=== PATIENT | male | born 1945 | race Caucasian/White ===

== ENCOUNTER 2020-03-12 12:27 | Inpatient (IN) | payer OTHER, BC, MEDICARE ==
[2020-03-12] VITALS (29 sets, daily range): BP systolic 115–190; BP diastolic 78–144
[~2020-03-12] VITALS: Ht 182.9 cm; Wt 77.1 kg
--- NOTE | 2020-03-12 11:50 | NUR ---
Arrival Patient arrived on unit via stretcher to ICU 2. Report received from EMS. Assumed care of patient. Pt placed on bedside monitor, Vital signs within normal limits. Admission and assessment completed as charted. Educated pt on use of call light, pt verbalized understanding. Educated pt on airborne, droplet and contact precautions related to being COVID 19 positive, pt verbalized understanding. CAll light within reach. Will continue to monitor.
[2020-03-12] MEDS ORDERED: VALIUM PO STA (12:51)
[2020-03-12] MEDS ORDERED: VALIUM ONE (12:52)
[2020-03-12] MEDS ORDERED: VANCOMYCIN HCL 1 GM ONE (12:55)
[2020-03-12] MEDS ORDERED: NS 250ML 250 ML IV ONE ×2 (12:55→12:59)
[2020-03-12] MEDS ORDERED: KETAMINE HCL-Non-Preferred ONE (13:01)
[2020-03-12] MEDS ORDERED: VERSED ONE (13:01)
[2020-03-12] MEDS ORDERED: DIPRIVAN IV ONE (13:02)
[2020-03-12] MEDS ORDERED: SUBLIMAZE ONE (13:02)
[2020-03-12] MEDS ORDERED: LIDOCAINE 1% VIAL ONE (13:05)
[2020-03-12] MEDS ORDERED: SODIUM CHLORIDE IRR BOTTLE IR ONE (13:05)
[2020-03-12] MEDS ORDERED: GENTAMICIN 80 MG/NS 100 ML PB 100 ML IV ONE (13:05)
--- NOTE | 2020-03-12 13:18 | HPH ---
ADMIT DATE: 03/12/2020 CHIEF COMPLAINT: Recurrent syncope, documented sinus bradycardia, rate in the mid 30s, required atropine, transferred from [facility] where he waited for about 12 hours. HISTORY OF PRESENT ILLNESS: The patient is a 74-year-old white male who goes to the [facility], had a syncopal episode about a month ago. After he went to the [facility], his Lyrica was changed to gabapentin. He has no underlying history of any hypertension, diabetes, or known heart disease and he yesterday on 03/11/2020 in the afternoon while watching TV blacked out, had 3 such episodes, went to the [facility] and his heart rate was in the mid 30s, he required atropine 1 mg IV and subsequently 0.5 mg IV and his COVID test was positive. He has no respiratory or GI symptoms consistent with COVID. Lives in a small town of 16 people in [place] and is a echols and he was transferred here with documented strip showing heart rates of 38-40, sinus bradycardia, but at the present time, his rate is about 60, hence came in with symptomatic sinus node dysfunction with long sinus pauses for insertion of pacemaker and COVID positive status. ALLERGIES: None known. MEDICATIONS: Only gabapentin, twice a day. PAST MEDICAL HISTORY: Cervical surgery with 6 disks, surgeries in the past related to his degenerative disk and his injuries due to working with horses. SOCIAL HISTORY: Remote history of smoking, quit about 40 years ago. No history of any alcohol abuse. FAMILY HISTORY: Not much available and is noncontributory. PHYSICAL EXAMINATION: GENERAL: He is alert, awake, oriented. He is about 6 feet 2 inches and his weight is about 102-110 pounds. VITAL SIGNS: His pulse was 57, blood pressure 140/70, respirations 18. HEENT: Unremarkable. NECK: No JVD, no carotid bruits. LUNGS: Clear. HEART: Sounds normal. ABDOMEN: Soft, nontender, no organomegaly. EXTREMITIES: Distal pulses fairly well felt. NEUROLOGIC: Intact. EKG, sinus bradycardia documented, was 49, multiple strips, rates of 38-40 and long pauses, sinus arrest, COVID positive status. RECOMMENDATION: At this time is in view of the severe symptomatic status with long sinus arrest and sinus pauses, a DDD pacer advised, the patient is agreeable. Risks explained to the patient. Echocardiogram showed LV ejection fraction is about 50%, optimize, will be going for a pacer today. Erasto Marcelo MD DR: CHARISSA/nazia JOB# [id number]
--- NOTE | 2020-03-12 13:22 | NUR ---
Off unit Patient transferred off unit via hospital bed to OR for pacemaker insertion.
[2020-03-12] MEDS ORDERED: VANCOMYCIN HCL 1 GM in NS 250ML 250 ML IV ONE (13:30)
[2020-03-12] MEDS ORDERED: OMEP20TA62 PO (13:59)
[2020-03-12] MEDS ORDERED: WATER ONE (15:08)
[2020-03-12] MEDS ORDERED: DIPRIVAN IV STA (15:14)
--- NOTE | 2020-03-12 15:20 | NUR ---
Back on unit Patient arrived back on unit via hospital bed to ICU 2. Pt intubated in OR by Yanira WRIGHT. ET tube- 7.0. 19 @ lip, pt being bagged by [place]. RT at bedside to place patient on vent. OG tube clamped. Report received from Dada Rooney RN. Assumed care of patient. 18 gauge to right wrist only IV access at this time. Attempt x2 by this nurse. Unsuccessful. Addendum: 03/12/20 at 1733 by Radha Rodríguez RN-RES COUNSELOR Surgical dressing to right arm C/D/I. Right radial pulse +2. Right arm immobilized in sling.
[2020-03-12] MEDS: ZITHROMAX 500 MG in NS 250ML 250 ML IV SCH (15:30)
[2020-03-12] MEDS ORDERED: DECADRON IV SCH (15:30)
[2020-03-12] MEDS: PROTONIX IV 80 MG in NS 100ML 100 ML IV SCH (15:30)
[2020-03-12] MEDS ORDERED: ATIVAN IV PRN (15:30)
[2020-03-12] MEDS ORDERED: REMDESIVIR (EUA) 200 MG in NS 250ML 250 ML IV SCH (15:30)
[2020-03-12] MEDS ORDERED: LOPRESSER ONE (15:46)
[2020-03-12] MEDS ORDERED: ROCURONIUM BROMIDE IV ONE (15:56)
[2020-03-12] MEDS ORDERED: NS 1000ML 2,000 ML ONE (15:56)
[2020-03-12] MEDS ORDERED: QUELICIN ONE (15:56)
[2020-03-12] MEDS: DIPRIVAN IV PRN ×3 (16:00→21:32)
[2020-03-12] MEDS ORDERED: LOPRESSER IVP ONE (16:00)
--- NOTE | 2020-03-12 16:09 | DIREP ---
PROCEDURE:CHEST 2 VIEWS COMPARISON:[facility], CR, XRAY CHEST SINGLE VW, 03/11/2020, 08:57 PM. [facility], CT, CT CHEST W/O, 03/12/2020, 08:02 AM. INDICATIONS:POSSIBLE ASPIRATION FINDINGS: LUNGS/PLEURA:No significant pulmonary parenchymal abnormalities. No effusions. VASCULATURE:Normal. Unremarkable pulmonary vasculature. CARDIAC: Right subclavian cardiac pacing device. MEDIASTINUM:Normal. No visible mass or adenopathy. BONES:Normal. No fracture or visible bony lesion. OTHER: There is an endotracheal tube; the distance from the tip to the francia is 3 point cm. Nasogastric tube tip is in the proximal stomach. CONCLUSION: 1. No pulmonary infiltrate 2. Right subclavian cardiac pacing device. No pneumothorax 3. Endotracheal tube appears to be the appropriate position 4. Nasogastric tube tip is in the proximal stomach Dictated by: Rashad Olivas Jr. on 03/12/2020 at 04:04 PM
[2020-03-12 16:12] LABS: ABG PCO2 43.9 mmHg (35.0-45.0); HCO3act 22.1 mmol/L (22.0-26.0); pO2 71.1 mmHg (80.0-100.0)
[2020-03-12 16:27] LABS: BASOPHIL % 0.3 % (0.0-0.2); EOSINOPHIL % 0.4 % (0.0-5.0); LYMPHOCYTES # 1.19 10^3/uL1 (1.0-4.8); LYMPHOCYTES % 12.4 % (24.0-44.0); MONOCYTES # 0.6 10^3/uL (0.3-0.8); MONOCYTES % 5.7 % (5.0-12.0); NEUTROPHIL # 7.8 10^3/uL (1.8-7.7); PLATELET COUNT 223 10^3/uL (150-400); RED CELL DISTRIBUTION WIDTH 12.6 % (11.5-14.5)
--- NOTE | 2020-03-12 16:44 | PCM.EKG ---
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
[2020-03-12 16:51] LABS: CARBON DIOXIDE 24.2 mmol/L (20.0-32)
[2020-03-12] MEDS ORDERED: MORPHINE SULFATE IV PRN (17:00)
--- NOTE | 2020-03-12 17:25 | NUR ---
Jacinto Prather RN at bedside for midline placement per Dr. Marcelo order.
[2020-03-12 18:11] LABS: ABG PCO2 34.4 mmHg (35.0-45.0); BE(B) -2.5 mmol/L (-2.0-2.0); HCO3act 21.3 mmol/L (22.0-26.0); pO2 69.6 mmHg (80.0-100.0)
--- NOTE | 2020-03-12 18:27 | OPH ---
DATE OF SURGERY: 03/12/2020 PERMANENT PACEMAKER OPERATIVE REPORT A 74-year-old male. PREOPERATIVE DIAGNOSES: Recurrent syncope, sick sinus syndrome, AV andra block, sinus arrest, COVID positive status, intraoperative gastrointestinal bleeding, hypoxemia requiring ventilatory support. POSTOPERATIVE DIAGNOSES: Recurrent syncope, sick sinus syndrome, AV andra block, sinus arrest, COVID positive status, intraoperative gastrointestinal bleeding, hypoxemia requiring ventilatory support. ANESTHESIA: Provided general anesthesia and intubation, started off with TIVA anesthesia by SNOW BLOWER and local anesthesia in the left and right infraclavicular region. DEVICE IMPLANTED: Edora 8 DR-T Biotronik, serial #[id number]. Leads are right atrial preformed J passive Biotronik Solia JT 45 cm, serial #[id number]. Ventricular lead is a Solia S53 Biotronik, serial #[id number]. STIMULATION THRESHOLD: Right atrium 6.4 millivolt P-wave and 0.6 volt threshold of 0.4 milliseconds pulse width and impedance of 682 ohms. Right ventricle is 10.5 millivolt R-wave with threshold of 0.7 volts and 0.4 milliseconds and 682 ohms impedance. Device is programmed to DDDR 65 lower rate, upper rate is 130. USR is 160, mode switches is 160, AV delay is 200 milliseconds, paced 180 milliseconds, sensed adaptive AV delay is programmed, amplitude set at 3.6 volts in the atrium and 4.8 volts in the ventricle with 0.4 milliseconds pulse width both in the atrium and ventricle. Atrial sensitivity set at 0.5 millivolts and ventricular sensitivity set at 2.5 millivolts, bipolar pacing and sensing. NARRATION OF PROCEDURE: The patient was transferred from [facility] after staying there for about 12 hours with difficulty trying to transfer him to [facility] and several other institutions and he had come with history of recurrent syncope having passed out on 3-4 occasions and in the Emergency Room was noted to have documented strips showing severe sinus bradycardia in the rate around 38-40 with sinus arrest and long pauses and intermittently AV Wenckebach with 3:2 Wenckebach with long pauses with narrow QRS complex suggestive of AV andra block concomitant with severe sick sinus syndrome with sinus arrest and a COVID positive status. Because of his severe symptomatic status with 4 episodes of syncope and documented bradycardia and hypotension, the patient was sent to the [facility] and the patient was brought to OR, COVID precautions were taken with N95 mask and a double masking and double gloving along with full COVID PPE. The patient was initially started on TIVA anesthesia and under complete surgical asepsis, 2% local anesthesia was instilled in the left infraclavicular region and left subclavian vein was punctured. 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 Hence, the procedure was switched to on the right side and under complete surgical asepsis, 2% local anesthesia instilled and right subclavian vein was punctured. Right subclavian vein was percutaneously accessed and guidewire was passed on the right side of the heart followed by introduction of tear-off 7-Togolese sheath and through the sheath, another guidewire was placed into the right atrium and after tearing the sheath, 2 separate 7-Togolese sheaths were introduced over both the guidewires and right ventricular lead was an active fixation screw and lead was positioned in the right ventricular apex close to the septum and good stimulation threshold was obtained. Subsequently, the atrial lead was positioned in the right atrial appendage and it was a preformed J passive lead. Good stimulation thresholds were obtained. In the meantime, the patient's general condition deteriorated requiring intubation because of hypoxemia with SO2 in the 75% range and also he was having a lot of secretions and coughing and upper airway reactive obstructive component along with GI bleeding through his mouth and it seemed like old blood coming through the NG tube and NG tube was placed. The patient was placed on a ventilator and was under general anesthesia and after full sedation of the patient, the subcutaneous pocket was made in the right infraclavicular region after excision of the skin, subcutaneous tissue up to the level of the muscle and both leads were anchored to the base of the pocket and Garamycin irrigation of the pocket was done along with adequate hemostasis was achieved and both leads were connected to the device and the device was kept in the pocket and measurements were done and subsequently the pocket was closed with interrupted subcutaneous sutures followed by application of metal cheko. The patient tolerated the procedure well, but had definitely acute respiratory failure along with hypoxemia and a pH of 7.32 suggestive of acidosis, primarily metabolic and respiratory acidosis and no pneumothorax noted after the postop chest x-ray, but the patient was brought to ICU for ventilatory management and for possibility of a COVID related lung with hypoxemia. The patient was started on Zithromax 500 mg IV along with remdesivir 200 mg first loading dose IV and dexamethasone 6 mg IV along with ventilatory management with follow COVID precautions. Repeat COVID test was also sent. As far as the procedure or the device, there were no complications noted. Laxmichand MD Davian DR: CHARISSA/nazia JOB# [id number]
[2020-03-12] MEDS: PEPCID IV SCH (20:40)
[2020-03-12] MEDS: VITAMIN C PO SCH (21:31)
[2020-03-13] VITALS (83 sets, daily range): BP systolic 81–176; BP diastolic 39–116
[2020-03-13] MEDS: PROTONIX IV 80 MG in NS 100ML 100 ML IV SCH ×2 (01:30→10:08)
[2020-03-13] MEDS: DIPRIVAN IV PRN ×2 (03:10→08:02)
--- NOTE | 2020-03-13 08:02 | NUR ---
Status Patient pulling at bilateral soft wrist restraints and attempting to pull at ET tube. Reoriented patient to person, place and time. Patient follows commands appropriately. Patient gave nurse thumbs up when stating I would turn sedation up. Propofol increased to 50mcg/kg/min. Restraints removed and reapplied, circulation rechecked. Pt resting comfortably at this time. Will continue to monitor.
[2020-03-13] MEDS: VITAMIN D PO SCH (08:06)
[2020-03-13] MEDS: VITAMIN C PO SCH ×2 (08:06→22:05)
[2020-03-13] MEDS: PEPCID IV SCH ×2 (08:06→22:06)
--- NOTE | 2020-03-13 08:20 | NUR ---
OG tube OG tube placement verified with ausculation, flushed with 60 cc of sterile water. Medications crushed and administered via OG tube. Tube clamped at this time.
[2020-03-13] MEDS: DECADRON IV SCH (08:36)
[2020-03-13] MEDS ORDERED: DECADRON IV SCH (09:00)
[2020-03-13 10:29] LABS: BASOPHIL % 0.1 % (0.0-0.2); EOSINOPHIL % 0.1 % (0.0-5.0); LYMPHOCYTES # 0.99 10^3/uL1 (1.0-4.8); LYMPHOCYTES % 7.1 % (24.0-44.0); MEAN CORP HGB 29.1 pg (26-34); MONOCYTES # 0.8 10^3/uL (0.3-0.8); MONOCYTES % 5.8 % (5.0-12.0); NEUTROPHILS % 86.5 % (41.0-85.0); PLATELET COUNT 179 10^3/uL (150-400); RED CELL DISTRIBUTION WIDTH 12.9 % (11.5-14.5)
[2020-03-13 10:42] LABS: ABG PCO2 29.9 mmHg (35.0-45.0); ABG PH 7.475 (7.350-7.450); BE(B) -0.8 mmol/L (-2.0-2.0); HCO3act 21.5 mmol/L (22.0-26.0)
[2020-03-13 10:56] LABS: CARBON DIOXIDE 23.7 mmol/L (20.0-32)
--- NOTE | 2020-03-13 11:00 | NUR ---
Dr. Davian Marcelo at bedside. New order received for RT to wean to extubate. RBVO. RT notified
--- NOTE | 2020-03-13 11:20 | NUR ---
DISCHARGE PLAN CASE MANAGEMENT VISITED WITH PATIENT'S , JUSTIN, D/T PT BEING ON VENTILATOR AND COVID POSITIVE STATUS CONCERNING DISCHARGE PLAN AND NEEDS. HE LIVES AT HOME IN [place], [place] WITH HIS , JUSTIN. HE WAS INDEPENDENT OF ADLS PRIOR TO THIS ADMISSION. SHE DENIES NEED FOR DME, HOME OXYGEN, OR HH, SNF, OUTPATIENT SERVICES. HE DOES GO TO THE [place] SOMETIMES, BUT HIS PCP IS DR. ROWLEY IN [place]. JUSTIN REQUESTED TO HAVE PT RETESTED FOR COVID. NOTIFIED DR. JUÁREZ OF REQUEST. JUSTIN ALSO STATED THAT SHE CARRIES THE INSURANCE BECAUSE SHE IS A FEDERAL EMPLOYEE, BUT THEY ALSO HAVE MEDICARE PART A. SENT HER AN EMAIL WITH CONTACT INFORMATION AND SHE IS GOING TO EMAIL INSURANCE CARDS AND DRIVERS LICENSE TO . DISCHARGE PLAN IS TO DC HOME WITH AND CONTINUE SELF CARE. CM WILL CONTINUE TO FOLLOW FOR DC NEEDS. DEON ALSO NOTIFIED MEGHANN AT THE [facility] @ 03/13/20 @ 1103 @ [phone] EXT [phone] OF ADMISSION ON 03/12/20 WITH DX: SYMPTOMATIC BRADYCARDIA, COVID POSITIVE.
--- NOTE | 2020-03-13 11:35 | DIREP ---
PROCEDURE:CHEST 1 VIEW COMPARISON:[facility], CR, XRAY CHEST 2 VWS, 03/12/2020, 03:07 PM. [facility], CR, XRAY CHEST SINGLE VW, 03/11/2020, 08:57 PM. INDICATIONS:ac resp failure FINDINGS: LUNGS/PLEURA:Endotracheal tube, tip level with the top of the aortic arch. Mild left basilar atelectasis, the increased from previous. No pneumothorax. VASCULATURE:Normal. Unremarkable pulmonary vasculature. CARDIAC:Stable heart size, pacemaker MEDIASTINUM:Normal. No visible mass or adenopathy. BONES:Surgical changes of the cervical spine, degenerative changes OTHER:Nasogastric tube, coursing below the diaphragm and off the limit of the film. Partially seen left-sided catheter. The overlying electrode wires. CONCLUSION:Lines and tubes appear appropriate in the single frontal projection. Increasing left basilar atelectasis. Dictated by: Rashad Hdz MD on 03/13/2020 at 11:30 AM
--- NOTE | 2020-03-13 12:39 | PCM.EKG ---
[facility] Test Date: 2020-03-13 Test Time: 12:36:30 Pat Name: LAMONT MALIK Department: Room: ICU2 A Gender: M Sheet Rock Nailer: ER : 1945 Requested By: MIKY JUÁREZ Order Number: [id number] Reading MD: Measurements Intervals [place] Rate: 69 P: MN: 176 QRS: 21 QRSD: 97 T: 53 QT: 410 QTc: 440 Interpretive Statements Atrial-paced rhythm Compared to ECG 03/12/2020 16:40:37 Sinus rhythm no longer present Please click the below link to view image of tracing.
--- NOTE | 2020-03-13 15:35 | NUR ---
Propofol Propofol off at this time for sedation vacation to wean ventilator.
--- NOTE | 2020-03-13 15:55 | NUR ---
RT parameters Dr. Marcelo notified of NIP -48, forced volume 1900. New order received for extubation. Starla with RT notified
--- NOTE | 2020-03-13 16:07 | NUR ---
Extubation This nurse and RT at bedside for extubation. Sedation off. Patient responding appropriately and alert and oriented x3. Patient extubated at this time per Dr. Marcelo order and placed on O2 at 2L via NC. O2 saturation- 96%. Pt given sips of water, no s/s of aspiration or difficulty swallowing noted. Dr. Marcelo notified. New order received for 2gmna diet. RBTO. Addendum: 03/13/20 at 1754 by Radha Rodríguez RN-INTERLOCKING AND SIGNAL MECHANIC OG tube also removed at this time.
[2020-03-13] MEDS: ZITHROMAX 500 MG in NS 250ML 250 ML IV SCH (16:30)
--- NOTE | 2020-03-13 16:41 | NUR ---
DISCHARGE UPDATE ATA OUTSOLE CEMENTER MACHINE NURSE WITH [facility] IN [place] HAS A PROGRAM IN WHICH THEY FOLLOW ALL OF THEIR PATIENTS FOR 30 DAYS TO ASSIST WITH FOLLOW UP APPOINTMENTS, HOME HEALTH, ETC. SHE GOT HIM'S PHONE NUMBER AND FAX NUMBER TO REQUEST MEDICAL RECORDS FROM THIS FACILITY. SHE ALSO GOT DR. JUÁREZ'S OFFICE NUMBER TO ASSIST WITH FOLLOW UP WITH HIS OFFICE NEEDED FOR POST PACER INSERTION. ATA'S # IS [phone] IF FURTHER FOLLOW UP ASSISTANCE IS NEEDED.
[2020-03-13] MEDS ORDERED: REMDESIVIR (EUA) 100 MG in NS 250ML 250 ML IV SCH (17:00)
[2020-03-13] MEDS ORDERED: ROCEPHIN 1,000 MG in NS 100ML 100 ML IV SCH ×2 (18:00→21:00)
[2020-03-13] MEDS: NS 1000ML/KCL 20MEQ 1,000 ML IV SCH (19:21)
--- NOTE | 2020-03-13 21:22 | PNH ---
DATE: 03/13/2020 SUBJECTIVE: The patient was intubated following pacer insertion yesterday on 03/12/2020 when he came in with recurrent syncope with severe sinus arrest and sick sinus syndrome along with AV andra block and intermittent complete heart block noted on the strips obtained from [place] and during the procedure, he started vomiting and having coffee-ground emesis and gastric contents were positive for guaiac and he was hypoxic, in acute respiratory failure in the operating room and he is COVID positive and no definite infiltration was documented, but basilar atelectasis noted more in the left lung. He has been managed on the ventilator all through the night and this morning, he is on 50% FiO2 and attempts were being made to extubate him. I think he has got a good respiratory drive on his own. OBJECTIVE: His vital signs are stable. His pulse is 70, atrially paced rhythm, blood pressure is 140/70, respirations are 20. His blood gas was acceptable. Device check showed that he has almost 9 millivolt P-wave and 10 millivolt R-wave with thresholds less than 1 volt, both in the atrium and the ventricle and he is 100% atrially paced. His impedances were normal. The leads are in good position and the device function seems to be normal. Wound looks good. Cardiopulmonary examination seems to be stable. We will try to extubate him today and keep him on Rocephin, Zithromax and give him dexamethasone 6 mg IV because of his severe coughing and hypoxemia noted with alveolo-arterial gradient and give him benefit of remdesivir since he is a newly diagnosed COVID. His wants a repeat COVID test done. COVID pneumonia may not be seen on chest x-ray and lot of times are detected on CT scan and the CT scan also may have a lag period. At the present time, he sure behaves like having had some COVID pulmonary manifestations along with severe bradyarrhythmias and recurrent syncope, intermittent complete heart block along with sinus node dysfunction, which has been corrected by the insertion of the pacer. 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 PLAN: We will start him on metoprolol 25 mg once a day and extubate him and start him on baseline fluids along with Rocephin, Zithromax and clinical followup. Erasto Marcelo MD DR: Dimitris JOB# [id number]
[2020-03-14] VITALS (45 sets, daily range): BP systolic 106–173; BP diastolic 39–99
[2020-03-14 04:52] LABS: BASOPHIL % 0.2 % (0.0-0.2); EOSINOPHIL % 0.1 % (0.0-5.0); LYMPHOCYTES # 1.54 10^3/uL1 (1.0-4.8); LYMPHOCYTES % 12.8 % (24.0-44.0); MEAN CORP HGB 29.9 pg (26-34); MONOCYTES % 8.3 % (5.0-12.0); NEUTROPHIL # 9.4 10^3/uL (1.8-7.7); NEUTROPHILS % 78.4 % (41.0-85.0); PLATELET COUNT 190 10^3/uL (150-400)
[2020-03-14 05:15] LABS: CALCIUM 8.1 mg/dL (8.4-10.5); CARBON DIOXIDE 25.1 mmol/L (20.0-32)
[2020-03-14] MEDS: NS 1000ML/KCL 20MEQ 1,000 ML IV SCH (05:46)
[2020-03-14] MEDS ORDERED: PREG75CA PO (08:44)
[2020-03-14] MEDS ORDERED: TOPROL XL PO SCH (09:00)
[2020-03-14] MEDS ORDERED: LYRICA PO SCH (09:00)
[2020-03-14] MEDS ORDERED: TYLENOL PO PRN (09:00)
[2020-03-14] MEDS: PEPCID IV SCH (09:08)
[2020-03-14] MEDS: DECADRON IV SCH (09:08)
[2020-03-14] MEDS: VITAMIN C PO SCH (09:09)
[2020-03-14] MEDS: VITAMIN D PO SCH (09:10)
--- NOTE | 2020-03-14 10:50 | NUR ---
Dr. Davian Marcelo at bedside. O2 at 2L removed, pt on room air, O2 saturation-96%. Patient up ambulating in room with Dr. Marcelo. Max HR-90. New order received for patient discharge, Keflex 500mg TID x5 days, Metoprolol succinate 50mg po daily, Zinc 50mg daily, Vitamin C 500mg daily, Vitamin D3 2000 units daily and continue home Lyrica 75mg po BID and stop Ibuprofen. RBVO. Patient to follow up with Dr. Marcelo's office on March 19 at 1 P.M for wound check and to redress wound. Discharge pictures taken and placed in chart. No heat, redness, oozing or s/s of infection noted. Bruising and mild edema noted to site. Educated patient on s/s of infection, pt verbalized understanding.
[2020-03-14] MEDS ORDERED: CEPH-350 PO (11:37)
[2020-03-14] MEDS ORDERED: METO-237 PO (11:37)
[2020-03-14] MEDS ORDERED: FAMO-75 PO (11:43)
[2020-03-14] MEDS ORDERED: CHOL10003 PO (11:43)
[2020-03-14] MEDS ORDERED: ASCO500T5 PO (11:43)
--- NOTE | 2020-03-14 13:00 | NUR ---
Dressing change Dressing to right chest changed per Dr. Marcelo order using strict sterile technique. Site cleaned with chloraprep and alcohol, skin prepped and tegaderm applied.
--- NOTE | 2020-03-14 14:14 | DSH ---
DATE OF DISCHARGE: 03/14/2020 FINAL DIAGNOSES: Recurrent syncope, intermittent complete heart block, AV andra block, sick sinus syndrome, sinus arrest, severe sinus bradycardia, SA block, mild hypertension, postop respiratory distress with acute respiratory failure, COVID infection; atelectasis, left lung; left foot drop. Please refer to my history and physical to the point of my impression. HOSPITAL COURSE: The patient is a 74-year-old white male who lives in [place], [place] [address] and he had spent about 12 hours in the [facility] and was not accepted anywhere. He came with recurrent syncope, noted to have severe bradycardia with rates in the mid 30s and was given atropine several times and he was shipped here on a very bad winter and he got here and underwent AV sequential Biotronik pacer insertion and had a veno-occlusive disease on the left side due to prior clavicular fracture and the device was placed in the right infraclavicular region and both leads were showing excellent thresholds at less than 1 volt in both atrium and the ventricle. The impedances were stable and a 9 millivolt P-wave and close to 10-millivolt R-wave and during anesthesia, the patient started coughing. His COVID status was positive in [facility], and he had lot of secretions and was noted to have some degree of GI bleeding, which could have been a stress GI bleeding. His hemoglobin has been stable. He has had no GI bleeding and post-extubation was able to tolerate diet well, but he did have significant alveolar arterial gradient probably due to secretions and within 24 hours of which was extubated from the ventilator, was placed on Zithromax and dexamethasone. He was on propofol and he did get remdesivir 2 doses and Zithromax IV. His clinical condition has improved significantly. He is not displaying any COVID symptoms at the present time. His device site looks clean and rate response is documented. He is pacing atrially most of the time on 70-80% and his vital signs were stable, off oxygen, and his saturation was 96-97%. He was discharged with instructions to take Keflex 500 mg 3 times a day for 1 week and vitamin D3 2000 units daily and metoprolol 50 mg once a day for his systolic hypertension and Pepcid 20 mg twice a day, zinc 50 mg once a day, vitamin C 1 gram daily along with Lyrica 75 mg twice a day. I did stop his omeprazole because of his COVID status, which could actually be worsen the underlying COVID status in some studies and he is to see me back in the clinic on 03/19/2019 at 1:00 p.m. in the office for wound check, and COVID precautions given, told him to have his be checked for COVID at this point along with his close contacts. The patient was doing well at the time of discharge. Laxmichand MD Davian DR: CHARISSA/nazia JOB# [id number]
[2020-03-14] MEDS ORDERED: KEFLEX PO ONE ×2 (14:32→15:00)
--- NOTE | 2020-03-14 15:30 | NUR ---
Discharge Discharge instructions given to patient. Educated pt on importance of follow up with Dr. Marcelo, pt verbalized understanding. Educated pt on worsening s/s of covid infection and home instructions for himself and , pt verbalized understanding. Educated pt on post op pacemaker DC instructions, pt verbalize understanding. Educated pt on new medications and side effects, pt verbalized understanding. Educated pt on S/s of infection at pacemaker site, pt verbalized understanding. Incision site to right chest dressing c/d/i. Bruising and edema noted but no s/s of infection. Medications called into [facility] pharmacy. Patient transferred off unit via wheelchair wearing mask to private vehicle. No s/s of distress noted.
--- NOTE | 2020-03-17 00:09 | ECHO ---
DATE OF SERVICE: 03/12/2020 ECHO REPORT Symptomatic bradycardia, sick sinus syndrome, intermittent complete heart block, mild hypertension, assess LV function. FINDINGS: This was a limited study because the patient was COVID positive, and based on this limited study, while I was observing and the tech was doing the echo not much has been recorded. Mitral valve shows normal motion with normal mitral valve opening. Aorta is normal with normal aortic valve opening. Doppler studies were not much done and all the valves seem to be showing normal function. No evidence of any significant regurgitation was noted. Left ventricle was showing signs of early left ventricular hypertrophy, septum being thicker than the posterior wall, but there is evidence of early concentric left ventricular hypertrophy, septum more than posterior wall with overall good wall contractility, ejection fraction was over 50% and end-diastolic dimension with 4.74 cm, end-systolic dimension was about 4.74 cm and end-systolic dimension was 3.75 cm; hence, left ventricular hypertrophy with probably diastolic dysfunction. No valvular abnormality documented. Hopefully, study with Doppler will be done at a later date. The patient was being taken for a pacer insertion at this time. Erasto Marcelo MD DR: CHARISSA/nazia JOB# [id number]
== END 2020-03-14 15:30 | disposition home or self-care (01) | DRG 242 ==
LOC: ICU 12:27
PROVIDERS: ADMIT Specialist; ATTEND Specialist
PROC: 0JH606Z Insertion of Pacemaker, Dual Chamber into Chest Subcutaneous Tissue and Fascia, Open Approach (ICD-10-PCS; 2020-03-12)
PROC: 02HK3JZ Insertion of Pacemaker Lead into Right Ventricle, Percutaneous Approach (ICD-10-PCS; 2020-03-12)
PROC: 02H63JZ Insertion of Pacemaker Lead into Right Atrium, Percutaneous Approach (ICD-10-PCS; 2020-03-12)
PROC: B5161ZZ Fluoroscopy of Right Subclavian Vein using Low Osmolar Contrast (ICD-10-PCS; 2020-03-12)
PROC: XW033E5 Introduction of Remdesivir Anti-infective into Peripheral Vein, Percutaneous Approach, New Technology Group 5 (ICD-10-PCS; 2020-03-12)
PROC: 5A1935Z Respiratory Ventilation, Less than 24 Consecutive Hours (ICD-10-PCS; 2020-03-12)
PROC: B5171ZZ Fluoroscopy of Left Subclavian Vein using Low Osmolar Contrast (ICD-10-PCS; principal; 2020-03-12 13:05)
DX: I49.5 Sick sinus syndrome (principal); U07.1 COVID-19; J96.01 Acute respiratory failure with hypoxia; I44.2 Atrioventricular block, complete; K92.0 Hematemesis; I10 Essential (primary) hypertension; I45.5 Other specified heart block; M21.372 Foot drop, left foot; Z79.899 Other long term (current) drug therapy; Z87.891 Personal history of nicotine dependence
CPT/HCPCS: 36415; 36569; 36600; 71045; 71046; 76000; 80053; 80061; 82271; 82728; 82803; 83615; 84478; 84484; 85025; 87070; 87205; 87635; 93005; 93321; 94002; A4217; C1785; C1898; C9113; G0378; J0330; J0456; J0696; J1100; J2001; J2250; J2270; J3010; J3370; J3490; J7030; J7050; Q9966; C1769; J1580

== ENCOUNTER 2020-03-19 11:36 | Emergency (ER) | payer OTHER, BC, MEDICARE ==
[~2020-03-19] VITALS: Ht 182.9 cm; Wt 79.4 kg
[~2020-03-19 11:36] MED LIST: ASCO500T5 PO; CEPH-350 PO; CHOL10003 PO; FAMO-75 PO; METO-237 PO; OMEP20TA62 PO; PREG75CA PO
[2020-03-19 11:50] VITALS: BP 142/91
[2020-03-19 11:56] VITALS: BP 142/91
--- NOTE | 2020-03-19 12:38 | ER.PDOC ---
General Chief Complaint: Wound Recheck/Suture Removal Stated Complaint: WOUND CARE Time seen by MD: 12:35 Source: patient Exam Limitations: no limitations History of Present Illness Initial Procedure Done In ER: For staple remove from pacemaker placement. Treated In Another ED/Practice: Yes Symptoms Since Procedure: no complaints Allergies: Coded Allergies: No Known Allergies (Unverified , 03/12/20) Home Meds Active Scripts Famotidine (PEPCID) 20 Mg Tablet, 20 MG PO BIDM for 14 Days Prov:MIKY MARCELO MD 03/14/20 Ascorbic Acid (ASCORBIC ACID) 500 Mg Tablet, 500 MG PO BID for 30 Days, TAB Prov:MIKY MARCELO MD 03/14/20 Cholecalciferol (Vitamin D3) (Vitamin D3) 25 Mcg (1000 Unit) Tablet, 2000 UNIT PO DAILY for 30 Days, TAB Prov:MIKY MARCELO MD 03/14/20 Cephalexin (KEFLEX) 500 Mg Capsule, 1 CAP PO TID for 5 Days, #30 CAP 0 Refills Prov:MIKY MARCELO MD 03/14/20 Metoprolol Succinate (METOPROLOL SUCCINATE) 50 Mg Tab.er.24h, 1 TAB PO DAILY, #30 TAB 5 Refills Prov:MIKY MARCELO MD 03/14/20 Reported Medications Pregabalin (LYRICA) 75 Mg Capsule, 1 CAP PO BID, #60 CAP 1 Refill 03/14/20 Discontinued Reported Medications Omeprazole Magnesium (PRILOSEC OTC) 20 Mg Tablet.dr, 1 TAB PO QD for 30 Days, #30 TAB 0 Refills 03/12/20 Past Medical History Medical History: cardiac problems Surgical History: pacemaker/ICD Social History Alcohol Use: none Drug Use: none Constitutional: no symptoms reported EENTM: no symptoms reported Respiratory: no symptoms reported Cardiovascular: no symptoms reported Gastrointestinal: no symptoms reported Skin: see HPI All Other Systems: Reviewed and Negative Physical Exam General Appearance: alert, no distress Neuro/Vascular/Tendon: no vascular compromise, sensation nml, no tendon injury, nml ROM Skin: no infection, healing wound (left upper chest) Head/ENT: nml inspection, pharynx nml Neck/Back: nml inspection, non-tender, painless ROM Respiratory: chest non-tender, no resp. distress, breath sounds nml CVS: reg. rate & rhythm, heart sounds nml Abdomen: non-tender, no organomegaly Results/Orders Results/Orders Vital Signs Date Time Temp Pulse Resp B/P (MAP) Pulse Ox O2 Delivery O2 Flow Rate FiO2 03/19/20 11:56 98.3 82 18 142/91 (108) 97 Room Air 03/19/20 11:50 98.3 82 18 03/19/20 11:50 98.3 82 18 97 Progress Progress Spoke with Dr. Marcelo who told me to have patient go to his office for him to take a look before removal of cheko. ER DEPART Departure Time of Disposition: 12:37 Disposition: 01 HOME, SELF-CARE Impression: Primary Impression: Encounter for postoperative wound check Condition: Stable Referrals: PCP,UNKNOWN (PCP) PRIMARY CARE PROVIDER Additional Instructions: F/U with Dr. Marcelo this afternoon as scheduled Duration or Time Spent with Pa: 10 min RIANNA MIRANDA MD Mar 19, 2020 12:38
== END 2020-03-19 12:40 | disposition home or self-care (01) ==
LOC: ER 11:36
DX: Z48.01 Encounter for change or removal of surgical wound dressing (principal); Z79.899 Other long term (current) drug therapy; Z95.0 Presence of cardiac pacemaker
CPT/HCPCS: 99281

== ENCOUNTER 2020-03-26 13:10 | Day surgery (SDC) | payer BC, MEDICARE ==
[~2020-03-26] VITALS: Ht 182.9 cm; Wt 77.1 kg
[~2020-03-26 13:10] MED LIST changes: +NS 1000ML 1,000 ML ONE; +SUBLIMAZE ONE; +VERSED ONE
[2020-03-26 13:19] VITALS: BP 142/95
[2020-03-26] MEDS ORDERED: PANT40TA6 PO (13:24)
[2020-03-26] MEDS ORDERED: ZINC50TA42 PO (13:24)
[2020-03-26] MEDS ORDERED: SIMV10TA18 PO (14:00)
[2020-03-26 14:04] VITALS: BP 133/85
--- NOTE | 2020-03-26 21:34 | CCLR ---
DATE OF CONSULTATION: 03/26/2020 OUTPATIENT NOTE CHIEF COMPLAINT: Dizziness, lightheadedness, post-pacer insertion for sick sinus syndrome with intermittent AV andra complete heart block about 3 weeks ago. Now on remote monitoring, noted to have a rise in the V lead threshold to almost 2.2 volts and impedances are stable. Hence brought to outpatient to visualize the leads under fluoroscopy and assess for reprogramming and assess for pacer malfunction. On remote monitoring, it was noted that the patient had a sudden increases V pacing from less than 10% to over mid 30% and the V was atrially pacing around 56% and at the present time, the patient was called in and brought to the cardiac cath rn and he was poor based on the catheterization table and fluoroscopy and cineangiography was performed of the device showed good connections. The lead appeared to be both in improper position. The V lead was an active fixation screw and lead were attached to the RV endocardium and good motion of the lead was documented. It had lost some of its slack. The atrial lead was in excellent position into the right atrial appendage and the atrial sensing showed 8.7 millivolt P-wave and 5.1 millivolt R-wave with threshold of 1.3 volt in the atrium and 2.2 volts in the ventricle. There was a sudden rise to the threshold in the ventricle and the lead impedance is 585 ohms in the atrium and 507 ohms in the ventricle. Since the patient was having significant V pacing, AV delay was extended to a fixed AV delay of 300 milliseconds with a base rate of 65 and a max rate of 120 and amplitudes were changed to 3.6 volts in the atrium and 4.8 volts in the ventricle at 0.4 milliseconds pulse width, atrial sensitivity was at 0.5 millivolts and ventricular sensitivity at 2 millivolts. I think the patient may have had a current injury and may have some degree of micro fracture at the level of the tip of the ventricular and good position of the lead was established and I think with reprogramming and over the time, the injury current will improve with improved threshold. The patient was sent home, the reassurance was given. We will follow him back in the office since the patient had intermittently AV andra block with a narrow QRS complex with dropped QRS and one needs to establish if he has underlying coronary artery disease and cardiac catheterization is advisable, but the patient was supposed to have a Lexiscan in the office, which is scheduled for 04/17/2020. Probably in view of this fact, we will schedule a Lexiscan in the office earlier to assess for provoked ischemia and then decide on cardiac catheterization. We will continue his metoprolol 50 mg once a day with Lipitor 40 mg once a day and aspirin 81 mg once a day and the wound site is clean. Laxmichand MD Davian DR: CHARISSA/nazia JOB# [id number]
== END 2020-03-26 14:21 | disposition home or self-care (01) ==
LOC: CCL 13:10
PROVIDERS: ATTEND Specialist
DX: R42 Dizziness and giddiness (principal); I44.2 Atrioventricular block, complete; I49.5 Sick sinus syndrome; Z79.899 Other long term (current) drug therapy; Z86.19 Personal history of other infectious and parasitic diseases
CPT/HCPCS: 93289; J2250; J3010; J7030

== ENCOUNTER → 2023-06-30 | Outpatient (CLI) | payer OTHER ==
[~2023-06-30] MED LIST changes: -CHOL10003 PO; -NS 1000ML 1,000 ML ONE; +PANT40TA6 PO; +SIMV10TA18 PO; -SUBLIMAZE ONE; -VERSED ONE; +ZINC50TA42 PO; +[UNRECOGNIZED DRUG - CODE] PO
== END | disposition home or self-care (01) ==
LOC: RAD 10:25
PROVIDERS: ATTEND Specialist
DX: I34.0 Nonrheumatic mitral (valve) insufficiency (principal); I11.0 Hypertensive heart disease with heart failure; I50.32 Chronic diastolic (congestive) heart failure; I48.0 Paroxysmal atrial fibrillation; E78.5 Hyperlipidemia, unspecified; Z95.0 Presence of cardiac pacemaker
CPT/HCPCS: 78452; 93306; A9500